=== PATIENT | female | born 1985 | race Caucasian/White ===

== ENCOUNTER 2016-05-22 17:40 | Emergency (ER) | payer MEDICAID ==
[~2016-05-22 17:40] MED LIST: HYDR-2672 PO; HYDR-971 PO; LEVO500T38 PO; NAPR500T PO
[2016-05-22 18:05] VITALS: BP 144/72
[2016-05-22] MEDS ORDERED: HYDROCODONE/APAP 10/325 TABLET. PO ONE (18:30)
[2016-05-22] MEDS ORDERED: HYDR-963 PO (18:49)
--- NOTE | 2016-05-22 18:49 | PHYS DOC ---
Past Medical History Past Medical History: Anxiety, Depression Additional Past Medical Histor: chronic L arm PAIN, CHRONIC BACK PAIN Past Surgical History: , Tubal ligation Additional Past Surgical Histo: L arm surgery Smoking: Less than 1pk/day Alcohol Use: Rarely Drug Use: None Adult General Chief Complaint Chief Complaint: DENTAL PROBLEM HPI HPI Patient is a 30 year old female who presents with left mandibular pain after wisdom tooth extraction 4 days ago. She reports low-grade fevers at home. She feels that the gum is swollen around this area. She was prescribed clindamycin and pain medication by her dentist. She is out of the pain medication has not yet filled the prescription for clindamycin. She last took ibuprofen at 1730. Her PCP is Dr. Indy Ignacio. Review of Systems Review of Systems Constitutional: Reports low-grade fever. Eyes: Denies change in visual acuity, redness, or eye pain. [] HENT: Denies ear pain, nasal congestion or sore throat. Reports postextraction mandibular pain. Integument: Denies rash or skin lesions. [] Neurologic: Denies headache, focal weakness or sensory changes. [] Current Medications Current Medications Current Medications Medications (Trade) Dose Ordered Sig/Jessica Start Time Stop Time Status Last Admin Dose Admin Acetaminophen/ Hydrocodone Bitart (Lortab 10/325) 1 tab 1X ONCE 05/22/16 18:30 05/22/16 18:35 DC 05/22/16 18:52 1 TAB Allergies Allergies Allergies Coded Allergies Type Severity Reaction Last Updated Verified Penicillins Allergy Intermediate 07/01/15 Yes azithromycin Allergy Intermediate rash 07/01/15 Yes Physical Exam Physical Exam Constitutional: Well developed, well nourished, no acute distress, non-toxic appearance. [] HENT: Normocephalic, atraumatic, bilateral external ears normal, oropharynx moist, no oral exudates, nose normal. Bilateral TMs without erythema or bulging. There is no posterior pharyngeal erythema or tonsillar edema. Tooth # 17 has been extracted with appearance of dry socket. Eyes: PERRLA, EOMI, conjunctiva normal, no discharge. [] Neck: Normal range of motion, no tenderness, supple, no stridor. [] Skin: Warm, dry, no erythema, no rash. [] Neurologic: Alert and oriented X 3, normal motor function, normal sensory function, no focal deficits noted. [] Psychologic: Affect normal, judgement normal, mood normal. [] Current Patient Data Vital Signs Vital Signs Date Time Temp Pulse Resp B/P Pulse Ox O2 Delivery O2 Flow Rate FiO2 05/22/16 18:52 Room Air 05/22/16 18:05 98.9 118 18 96 98.9 EKG EKG [] Radiology/Procedures Radiology/Procedures [] Course & Med Decision Making Course & Med Decision Making Pertinent Labs and Imaging studies reviewed. (See chart for details) [] Dragon Disclaimer Dragon Disclaimer This electronic medical record was generated, in whole or in part, using a voice recognition dictation system. Departure Departure Impression: Primary Impression: Dry socket Disposition: HOME, SELF-CARE Condition: STABLE Referrals: INDY IGNACIO MD (PCP) Patient Instructions: Dental Dry Socket, [id number] Additional Instructions: Please fill the prescription for clindamycin given to you by your dentist. Complete all of the pills, even if you are feeling better. Please take the prescribed pain medication as directed. Do not drive or operate heavy machinery while taking this medication. Please follow-up with your dentist as soon as possible. Return to the emergency department if you have any new or concerning symptoms. Scripts Hydrocodone/Apap 10-325 ([place] 10-325 Tablet)1 Each Tablet1 Tab PO PRN Q6HRS PRN PAIN #15 TAB Ref 0 Prov:RENEE HOPE 05/22/16 RENEE HOPE May 22, 2016 18:49
== END 2016-05-22 18:56 | disposition home or self-care (01) ==
LOC: ER 17:40
DX: M27.3 Alveolitis of jaws (principal); R50.9 Fever, unspecified; F41.9 Anxiety disorder, unspecified; G89.29 Other chronic pain; F32.9 Major depressive disorder, single episode, unspecified; F17.200 Nicotine dependence, unspecified, uncomplicated; Z98.51 Tubal ligation status; Z88.1 Allergy status to other antibiotic agents; Z88.0 Allergy status to penicillin
CPT/HCPCS: 99283